=== PATIENT | female | born 1955 | race Caucasian/White ===

== ENCOUNTER 2018-03-02 08:53 | Day surgery (SDC) | payer BC, OTHER ==
[2018-03-02] MEDS ORDERED: NS 1,000 ML IV (09:15)
[2018-03-02] MEDS ORDERED: PROPOFOL 200 MG/20 ML VIAL As Ordered ×2 (09:30)
== END 2018-03-02 11:07 | disposition home or self-care (01) ==
LOC: M OPP 08:53
DX: K62.5 Hemorrhage of anus and rectum (principal); K64.8 Other hemorrhoids; E78.5 Hyperlipidemia, unspecified; M19.90 Unspecified osteoarthritis, unspecified site; L40.9 Psoriasis, unspecified; F41.9 Anxiety disorder, unspecified; F32.9 Major depressive disorder, single episode, unspecified; G43.909 Migraine, unspecified, not intractable, without status migrainosus; G62.9 Polyneuropathy, unspecified; R56.9 Unspecified convulsions; J32.9 Chronic sinusitis, unspecified; Z87.442 Personal history of urinary calculi; Z88.8 Allergy status to other drugs, medicaments and biological substances; Z88.1 Allergy status to other antibiotic agents; Z79.899 Other long term (current) drug therapy; Z80.3 Family history of malignant neoplasm of breast; Z80.1 Family history of malignant neoplasm of trachea, bronchus and lung; Z80.6 Family history of leukemia
CPT/HCPCS: 45378

== ENCOUNTER 2018-08-28 13:50 | Outpatient (CLI) | payer BC, OTHER ==
[~2018-08-28 13:50] MED LIST: METHACHOLINE KIT (J7674) INH
[2018-09-06] MEDS ORDERED: METHACHOLINE KIT (J7674) INH (14:00)
== END 2018-09-06 ==
LOC: M CARPUL 13:50
DX: R06.00 Dyspnea, unspecified (principal)
CPT/HCPCS: J7674

== ENCOUNTER → 2024-11-06 | Outpatient (REF) | payer MEDICARE, BC ==
[~2024-11-06] MED LIST changes: +CYAN500T14 PO; +LEVE750T5; -METHACHOLINE KIT (J7674) INH; +MV-M1TAB29 PO; +PROAAER10; +ROSU5TAB49; +SERT50TA29; +SUMA50TA2; +ULTR1TAB PO; +VITA100067 PO; +VITA400C7 PO
[2024-11-06 16:49] LABS: APPEARANCE, URINE HAZY (CLEAR); BACTERIA, URINE AUTO 1+ (NEGATIVE); BILIRUBIN, URINE AUTO NEGATIVE (NEGATIVE); BLOOD, URINE BLOOD NEGATIVE (NEGATIVE); COLOR, URINE YELLOW (YELLOW); GLUCOSE, URINE (UA) AUTO NEGATIVE (NEGATIVE); KETONE, URINE AUTO NEGATIVE (NEGATIVE); LEUKOCYTE ESTERASE, URINE AUTO 1+ (NEGATIVE); MUCUS, URINE SMALL (NEGATIVE); NITRITE, URINE AUTO POSITIVE (NEGATIVE); PROTEIN, URINE AUTO NEGATIVE (NEGATIVE); RBC, URINE AUTO 0 /HPF (0-3); SPECIFIC GRAVITY URINE AUTO 1.011 (1.002-1.035); SQUAMOUS EPITHELIAL CELL UR AU 1 /HPF (0-6); UROBILINOGEN, URINE AUTO 0.2 mg/dL (0.0-2.0); WBC, URINE AUTO 33 /HPF (0-3)
[2024-11-06 16:50] LABS: BASO % 0.8 % (0.0-1.0); EOS # 0.1 10^3/uL (0.0-0.5); EOS % 1.3 % (0.0-3.0); HEMATOCRIT 40.1 % (36.0-47.0); HEMOGLOBIN 12.6 g/dl (12.0-15.5); LYMPH # 2.1 10^3/uL (1.5-5.0); LYMPH % 40.3 % (24.0-44.0); MEAN CORPUSCULAR HEMOGLOBIN 30.5 pg (27.0-33.0); MEAN CORPUSCULAR HGB CONC 31.4 g/dl (32.0-36.5); MEAN CORPUSCULAR VOLUME 97.1 fl (80.0-96.0); MONO # 0.5 10^3/uL (0.0-0.8); NEUTROPHILS # 2.5 10^3/uL (1.5-8.5); NEUTROPHILS % 47.5 % (36.0-66.0); PLATELET COUNT, AUTOMATED 264 10^3/uL (150-450); RED BLOOD COUNT 4.13 10^6/uL (4.00-5.40); WHITE BLOOD COUNT 5.3 10^3/uL (4.0-10.0)
[2024-11-06 16:56] LABS: ALBUMIN 4.3 G/DL (3.2-5.2); ALKALINE PHOSPHATASE 67 U/L (35-104); ALT/SGPT 37 U/L (7.0-40); AST/SGOT 29 U/L (<34); BILIRUBIN,TOTAL 0.5 MG/DL (0.3-1.2); BLOOD UREA NITROGEN 11 MG/DL (9-23); C REACTIVE PROTEIN QUANTITATIV < 0.50 MG/DL (<1.0); CALCIUM LEVEL 10.3 MG/DL (8.3-10.6); CARBON DIOXIDE LEVEL 28 MMOL/L (20-31); CHLORIDE LEVEL 105 MMOL/L (98-107); CREATININE FOR GFR 0.76 MG/DL (0.55-1.30); ERYTHROCYTE SEDIMENTATION RATE 47 mm/hr (0-30); GLOMERULAR FILTRATION RATE > 60.0 (>45); GLUCOSE, FASTING 83 MG/DL (74-106); SODIUM LEVEL 142 MMOL/L (136-145); TOTAL PROTEIN 7.9 G/DL (5.7-8.2)
[2024-11-06 16:57] LABS: COMPLEMENT C3 142.4 MG/DL (90.0-170.0); COMPLEMENT C4 22.6 MG/DL (12-36)
[2024-11-06 17:17] LABS: CREATININE,RANDOM URINE 86.8 MG/DL
[2024-11-06 17:19] LABS: TOTAL PROTEIN,RANDOM URINE < 6.0 MG/DL (0.0-14.0)
[2024-11-11 17:23] LABS: COMPLEMENT TOTAL (CH50) 60 U/mL (31-60)
[2024-11-14 01:32] LABS: PTT-LA 33 sec (<=40); dRVVT 40 sec (<=45)
[2024-11-14 09:22] LABS: HLA-B27 Negative (Negative)
== END ==
LOC: M SFHCRHEU 12:58
PROVIDERS: ATTEND Internal Medicine Rheumatology
DX: R76.8 Other specified abnormal immunological findings in serum (principal); M25.50 Pain in unspecified joint; H04.123 Dry eye syndrome of bilateral lacrimal glands; L40.8 Other psoriasis